=== PATIENT | male | born 1940 | race Caucasian/White ===

== ENCOUNTER → 2017-04-20 | Outpatient (CLI) | payer MEDICARE, OTHER | END | disposition home or self-care (01) | LOC: RAD 08:08 | PROVIDERS: ATTEND Nurse Practitioner Family | DX: S89.92XA Unspecified injury of left lower leg, initial encounter (principal); M11.262 Other chondrocalcinosis, left knee; M25.462 Effusion, left knee; E21.3 Hyperparathyroidism, unspecified; X58.XXXA Exposure to other specified factors, initial encounter; Y93.89 Activity, other specified; Y92.89 Other specified places as the place of occurrence of the external cause; Y99.8 Other external cause status ==

== ENCOUNTER → 2017-08-26 | Outpatient (CLI) | payer MEDICARE, OTHER | END | disposition home or self-care (01) | LOC: CFH 13:57 | PROVIDERS: ATTEND Orthopaedic Surgery | DX: M75.122 Complete rotator cuff tear or rupture of left shoulder, not specified as traumatic (principal); M19.012 Primary osteoarthritis, left shoulder ==

== ENCOUNTER 2018-09-05 14:32 | Emergency (ER) | payer MEDICARE, OTHER ==
[~2018-09-05] VITALS: Ht 177.8 cm; Wt 96.5 kg
[2018-09-05] MEDS ORDERED: SODIUM CHLORIDE 0.9% 1,000ML IVBOLUS ONE (15:00)
[2018-09-05] MEDS ORDERED: SODIUM CHLORIDE FLUSH 10ML SYR IVF ONE (15:00)
[2018-09-05 15:43] LABS: BASOPHILS # (AUTO) 0.02 x10^3/uL (0-0.1); BASOPHILS % (AUTO) 0 % (0-1); EOSINOPHILS # (AUTO) 0.24 x10^3/uL (0-0.4); EOSINOPHILS % (AUTO) 3 % (1-7); LYMPHOCYTES # (AUTO) 2.03 x10^3/uL (1-3.4); LYMPHOCYTES % (AUTO) 23 % (22-44); MD NO; MEAN CORPUSCULAR HEMOGLOBIN 29.6 pg (27.5-34.5); MEAN CORPUSCULAR HGB CONC 32.5 g/dL (33.2-36.2); MEAN CORPUSCULAR VOLUME 91.3 fL (81-97); MEAN PLATELET VOLUME 8.1 fL (7.4-10.4); MONOCYTES # (AUTO) 0.84 x10^3/uL (0.2-0.8); MONOCYTES % (AUTO) 10 % (2-9); NEUTROPHILS # (AUTO) 5.57 x10^3/uL (1.8-6.8); NEUTROPHILS % (AUTO) 64 % (42-75); PLATELET COUNT 253 x10^3/uL (130-400); RED BLOOD COUNT 4.32 x10^6/uL (4.38-5.82); RED CELL DISTRIBUTION WIDTH 15.8 % (9.4-14.8)
[2018-09-05 15:54] LABS: ANION GAP 8 mmol/L (5-15); CALCIUM 8.9 mg/dL (8.5-10.1); CHLORIDE 106 mmol/L (98-107)
[2018-09-05 15:57] LABS: ALANINE AMINOTRANSFERASE 27 U/L (12-78); ALKALINE PHOSPHATASE 109 U/L (45-117); BILIRUBIN,TOTAL 0.2 mg/dL (0.2-1.0); CREATININE 1.28 mg/dL (0.7-1.3); TOTAL PROTEIN 7.2 g/dL (6.4-8.2)
[2018-09-05 15:59] LABS: PROTHROMBIN TIME 10.3 Seconds (9.6-11.5)
[2018-09-05] MEDS ORDERED: OMNIPAQUE 350 MG/ML, 100ML BOTTLE ONE (16:00)
[2018-09-05 17:18] LABS: MICROSCOPIC NOT IND
[2018-09-05 17:23] LABS: CULTURE INDICATED? NO
== END 2018-09-05 18:28 | disposition home or self-care (01) ==
LOC: ED 16:30
DX: K55.059 Acute (reversible) ischemia of intestine, part and extent unspecified (principal); K62.5 Hemorrhage of anus and rectum; Z87.891 Personal history of nicotine dependence
CPT/HCPCS: 36415; 74177; 80053; 81003; 83605; 85025; 85610; 85730; 99285; Q9967

== ENCOUNTER 2019-02-10 10:14 | Emergency (ER) | payer MEDICARE, OTHER ==
[~2019-02-10] VITALS: Ht 177.8 cm; Wt 96.1 kg
[2019-02-10 10:49] LABS: MICROSCOPIC NOT IND
[2019-02-10 12:44] LABS: BASOPHILS # (AUTO) 0.03 x10^3/uL (0-0.1); BASOPHILS % (AUTO) 0 % (0-1); EOSINOPHILS # (AUTO) 0.08 x10^3/uL (0-0.4); EOSINOPHILS % (AUTO) 1 % (1-7); LYMPHOCYTES # (AUTO) 1.99 x10^3/uL (1-3.4); LYMPHOCYTES % (AUTO) 20 % (22-44); MD NO; MEAN CORPUSCULAR HEMOGLOBIN 28.1 pg (27.5-34.5); MEAN CORPUSCULAR HGB CONC 31.9 g/dL (33.2-36.2); MEAN CORPUSCULAR VOLUME 88.1 fL (81-97); MEAN PLATELET VOLUME 8.3 fL (7.4-10.4); MONOCYTES # (AUTO) 0.78 x10^3/uL (0.2-0.8); MONOCYTES % (AUTO) 8 % (2-9); NEUTROPHILS # (AUTO) 7.05 x10^3/uL (1.8-6.8); NEUTROPHILS % (AUTO) 71 % (42-75); PLATELET COUNT 262 x10^3/uL (130-400); RED BLOOD COUNT 4.61 x10^6/uL (4.38-5.82); RED CELL DISTRIBUTION WIDTH 16.5 % (9.4-14.8)
[2019-02-10 12:57] LABS: ALANINE AMINOTRANSFERASE 26 U/L (12-78); ALBUMIN 3.3 g/dL (3.4-5.0); ANION GAP 4 mmol/L (5-15); CALCIUM 8.9 mg/dL (8.5-10.1); CHLORIDE 108 mmol/L (98-107); CREATININE 1.21 mg/dL (0.7-1.3)
[2019-02-10 12:59] LABS: ALKALINE PHOSPHATASE 118 U/L (45-117); BILIRUBIN,TOTAL 0.6 mg/dL (0.2-1.0); TOTAL PROTEIN 7.4 g/dL (6.4-8.2)
--- NOTE | 2019-02-10 13:11 | NUR ---
PT WITH [facility] ULCERATIVE COLITIS PRESENTS WITH CONSTANT LLQ PAIN THAT RADIATES INTO L TESTICLE. DENIES URINARY RETNETION OR PAINFUL URINATION. GENITALIA APPEAR WNL. BS PRESENT, LLQ TENDER TO DEEP PALP.
[2019-02-10] MEDS ORDERED: CHOL10002 PO (13:15)
[2019-02-10] MEDS ORDERED: ARIP5TAB13 PO (13:15)
[2019-02-10] MEDS ORDERED: FLUO20CA8 PO (13:18)
[2019-02-10] MEDS ORDERED: HYDR25TA11 PO (13:18)
[2019-02-10] MEDS ORDERED: TRAZ-137 PO (13:18)
[2019-02-10] MEDS ORDERED: GLIP5TAB10 PO (13:18)
[2019-02-10] MEDS ORDERED: CYAN500T18 PO (13:18)
[2019-02-10] MEDS ORDERED: LITH300T30 PO (13:18)
[2019-02-10] MEDS ORDERED: MORPHINE SULFATE 4 MG/ML, 1ML IVPush PRN (13:30)
[2019-02-10] MEDS ORDERED: MORPHINE SULFATE 4 MG/ML, 1ML ONE (14:23)
[2019-02-10 14:30] VITALS: BP 121/99
--- NOTE | 2019-02-10 14:30 | NUR ---
MEDICATED FOR PAIN. VSS
[2019-02-10] MEDS ORDERED: OMNIPAQUE 350 MG/ML, 100ML BOTTLE ONE (17:51)
== END 2019-02-10 15:22 | disposition home or self-care (01) ==
LOC: ED 13:12
DX: K57.32 Diverticulitis of large intestine without perforation or abscess without bleeding (principal); R10.32 Left lower quadrant pain; E11.9 Type 2 diabetes mellitus without complications; F43.10 Post-traumatic stress disorder, unspecified
CPT/HCPCS: 36415; 74177; 76870; 80053; 81003; 85025; 96374; 99284; Q9967

== ENCOUNTER 2021-05-13 11:25 | Emergency (ER) | payer MEDICARE, OTHER ==
[~2021-05-13] VITALS: Ht 165.1 cm; Wt 91.2 kg
[~2021-05-13 11:25] MED LIST: ARIP5TAB13 PO; CHOL10002 PO; CYAN500T18 PO; FLUO20CA23 PO; GLIP5TAB10 PO; HYDR-826 PO; LITH300T30 PO; TRAZ-175 PO
[2021-05-13 11:33] VITALS: BP 125/81
[2021-05-13] MEDS ORDERED: PROPARACAINE OPHTH 0.5%, 15ML ONE (11:59)
[2021-05-13] MEDS ORDERED: FLUORESCEIN OPHTHALMIC 1 MG STRIP ONE (11:59)
--- NOTE | 2021-05-13 12:03 | NUR ---
INTINAL CONTACT: PT W/ C/O "SOMETHING IN RIGHT UPPER EYELID FOR FOUR DAYS". DR. LAIRD TO BEDSIDE FOR EVALUATION. PT SITTING IN EXAM CHAIR.
--- NOTE | 2021-05-13 12:47 | NUR ---
Patient given discharge instructions and they have confirmed that they understand the instructions. Patient ambulatory with steady gait. NAD, all questions answered appropriately, denies additional needs at this time. No personal belongings left in room after discharge.
== END 2021-05-13 12:48 | disposition home or self-care (01) ==
LOC: ED 11:44
DX: S05.01XA Injury of conjunctiva and corneal abrasion without foreign body, right eye, initial encounter (principal); H10.021 Other mucopurulent conjunctivitis, right eye; E11.9 Type 2 diabetes mellitus without complications; X58.XXXA Exposure to other specified factors, initial encounter; Y93.9 Activity, unspecified; Y92.89 Other specified places as the place of occurrence of the external cause; Y99.8 Other external cause status
CPT/HCPCS: 99283